=== PATIENT | female | born 1935 | race Caucasian/White ===

== ENCOUNTER → 2016-11-08 | Day surgery (SDC) | payer OTHER ==
[~2016-11-08] MED LIST: ACETAMINOPHEN325 MG PO; ALDACTONE PO; ANTIVERT PO; CARAFATE1 GM PO; CLOBETASOL 0.0560 GM TOP; COLACE PO; COQ-10200 MG PO; DYAZIDE 37.5/251 CAP PO; FERROUS SULFATE PO; FLEXERIL PO; HYDROCODON-ACE1 EAC7 PO; KCL PO; LIPITOR20 MG PO; LORTAB 7.5-5001 TAB PO; MAG-OX 400400 M1 PO; MEVACOR PO; POTASSIUM CHLO20 ME1 PO; PROTONIX PO; TOPROL XL50 MG PO; TRIAMTERENE/HCTZ; VITAMIN B 12 PO; VITAMIN B-121000 MC1 SL; VITAMIN D350000 UNIT PO
--- NOTE | ~2016-11-08 | OR ---
Unit #: [id number] #: [id number] Patient: KUMAR RAMOS [id number] [place], [place] [address] [id number] O MR#: [id number] NAME: KUMAR RAMOS ROOM: Date of Procedure: 11/08/2016 Admission Date: 11/08/2016 Surgeon: Albert Thibodeaux M.D. : 1935 Attending Physician: Albert Thibodeaux M.D. Primary Care Physician: Ryan Dempsey M.D. OPERATIVE REPORT PREOPERATIVE DIAGNOSIS Recurrent chronic upper gastrointestinal bleed. POSTOPERATIVE DIAGNOSES 1. Large hiatal hernia. 2. Healed Neena-Fuentes tear. PROCEDURE PERFORMED Esophagogastroduodenoscopy. ANESTHESIA IV sedation. COMPLICATIONS None. INDICATIONS FOR PROCEDURE The patient is an 81-year-old with a persistent upper GI hemorrhage. 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 She presents with a recurrent bleed approximately 2 weeks ago. DESCRIPTION OF PROCEDURE The patient was taken to the operating theater and placed in left lateral decubitus position. IV sedation was initiated. EGD scope was passed under direct vision into then esophagus. The esophagus was ended in a large hiatal hernia. This seemed of a relatively narrow neck. The stomach was relatively normal. I did not see an AVM and we looked through the stomach multiple times. The duodenum was normal. A biopsy was taken for H pylori. I retroflexed in the scope to identify the large hiatal hernia. I did not see any necrosis. There was an area at the GE junction that appeared to be healed Neena-Fuentes tear. There was no active bleeding. No evidence of recent bleed. She tolerated the procedure well and sent to recovery room in good condition. PLAN Recommend upper GI and we will plan and will consider repair of this large hernia. I feel that she is getting food stuck in this pouch, is unable to eat and then vomits causing the recurrent bleed at the GE junction. Discussed with family. We will follow up as an outpatient. Unit #: [id number] #: [id number] Patient: KUMAR RAMOS Dictated by... Ivonne Sylvester/diego TD: 11/09/2016 02:57 JOB #: [id number] OPERATIVE REPORT X Albert Thibodeaux MD PROCEDURE OPERATIVE NOTE
== END | disposition home or self-care (01) ==
LOC: COPS 10:47
DX: K44.9 Diaphragmatic hernia without obstruction or gangrene (principal); I10 Essential (primary) hypertension; E78.5 Hyperlipidemia, unspecified; Z88.0 Allergy status to penicillin; Z88.6 Allergy status to analgesic agent; Z79.899 Other long term (current) drug therapy; Z98.51 Tubal ligation status; Z90.721 Acquired absence of ovaries, unilateral; Z98.890 Other specified postprocedural states; Z87.440 Personal history of urinary (tract) infections
CPT/HCPCS: 87077

== ENCOUNTER → 2016-11-12 | Outpatient (CLI) | payer OTHER ==
--- NOTE | ~2016-11-12 | CR97 ---
[facility] A Service of [facility] & [facility] RADIOLOGY TEXT RESULTS PATIENT: KUMAR RAMOS LOCATION: [facility] : 35 UNIT #: [id number] AGE: [address]: Albert Thibodeaux MD SEX: F ORDER DR: [id number] [facility] [address] [place], [place] [address] [id number] O MR#: [id number] Acc #: [id number] NAME: KUMAR RAMOS : 1935 SEX: F STUDY DATE/TIME: 11/12/2016 8:51 UNIT: [facility] ROOM: STUDY DESCRIPTION: CR Esophagram Attending Physician: Albert Thibodeaux M.D. Referring Physician: Albert Thibodeaux M.D. Ordering Physician: Albert Thibodeaux M.D. Primary Care Physician: Ryan Dempsey M.D. MEDICAL IMAGING REPORT This report is preliminary unless electronic signature is present EXAM Esophagram INDICATIONS An 81-year-old female with history of paraesophageal hernia. Vomiting. Symptoms for 1-2 years. No comparisons. The fluoro time was 0.5 minutes. 8 images were taken. FINDINGS Study demonstrates a large hiatal hernia over the paraesophageal component. Multiple tertiary contractions are seen within the esophagus. IMPRESSION Large hiatal hernia. Dictated by... Silas Bronson M.D. THIS IS AN ELECTRONICALLY VERIFIED REPORT Silas Bronson M.D. at 11/13/2016 11:31 AM JACOB/vinicio TD: 11/13/2016 00:57 JOB #: [id number] MEDICAL IMAGING REPORT Page 1 of 1 COPY
== END | disposition home or self-care (01) ==
LOC: CRAD 08:06
DX: K44.9 Diaphragmatic hernia without obstruction or gangrene (principal)
CPT/HCPCS: 74220

== ENCOUNTER → 2016-12-03 | Outpatient (CLI) | payer OTHER ==
[2016-12-03 09:46] LABS: HEMATOCRIT 28.5 % (35.0-45.0); HEMOGLOBIN 9.1 gm/dL (12.0-16.0); MEAN CELL VOLUME 88.2 FL (83-96); MEAN CORPUSCULAR HEMOGLOBIN 28.2 PG (28-34); MEAN CORPUSCULAR HGB CONC 31.9 g/dL (30-36); MEAN PLATELET VOLUME 8.5 FL (6.5-11.5); RED BLOOD COUNT 3.24 X10e (3.90-5.30); RED CELL DISTRIBUTION WIDTH 15.3 % (11.0-15.5); WHITE BLOOD COUNT 3.9 X10e3 (4.0-10.5)
[2016-12-03 10:42] LABS: BUN/CREATININE RATIO 15.55; CALCIUM SERUM 9.4 mg/dL (8.4-10.2); CREATININE SERUM 0.9 mg/dL (0.6-1.4); POTASSIUM 3.8 mmol/L (3.5-5.1)
== END | disposition home or self-care (01) ==
LOC: CAMB 07:33
PROVIDERS: Surgery
DX: Z01.812 Encounter for preprocedural laboratory examination (principal); K44.9 Diaphragmatic hernia without obstruction or gangrene; K21.9 Gastro-esophageal reflux disease without esophagitis
CPT/HCPCS: 36415; 80048; 85027

== ENCOUNTER 2016-12-11 09:12 | Observation (INO) | payer OTHER ==
--- NOTE | ~2016-12-11 | EKG ---
PATIENT: KUMAR RAMOS UNIT #: [id number] Ventricular Rate: 63 BPM Atrial Rate: 63 BPM P-R Interval: 122 ms QRS Duration: 66 ms Q-T Interval: 420 ms QTC Calculation(Bezet): 429 ms P [place]: 11 degrees Calculated R [place]: 32 degrees Calculated T [place]: 18 degrees Diagnosis Line: Normal sinus rhythm Diagnosis Line: Normal ECG Diagnosis Line: When compared with ECG of 25-JUL-2012 09:55, Diagnosis Line: Non-specific change in ST segment in Lateral leads Diagnosis Line: Nonspecific T wave abnormality no longer evident Diagnosis Line: in Anterolateral leads Diagnosis Line: Confirmed by HEENA HAGEN MD ([id number]) on 12/11/2016 Diagnosis Line: 10:50:38 PM INTERPRETING MD: XIAO PAULSON
--- NOTE | ~2016-12-11 | OR ---
Unit #: [id number] #: [id number] Patient: KUMAR RAMOS [id number] [place], [place] [address] [id number] I MR#: [id number] NAME: KUMAR RAMOS ROOM: 469 Date of Procedure: 12/11/2016 Admission Date: 12/11/2016 Surgeon: Albert Thibodeaux M.D. : 1935 Attending Physician: Albert Thibodeaux M.D. Primary Care Physician: Ryan Dempsey M.D. OPERATIVE REPORT PREOPERATIVE DIAGNOSIS Paraesophageal hiatal hernia. POSTOPERATIVE DIAGNOSIS Paraesophageal hiatal hernia. PROCEDURE PERFORMED Laparoscopic paraesophageal hiatal hernia repair with Deonte fundoplication. ASSISTANT Salty Alfonso M.D. ANESTHESIA General endotracheal anesthesia. ESTIMATED BLOOD LOSS Minimal. IV FLUIDS 800 crystalloid. COMPLICATIONS None. INDICATIONS FOR PROCEDURE The patient is an 81-year-old lady with a complex paraesophageal hiatal hernia causing nausea, vomiting, and inability to tolerate oral intake. She presents for laparoscopic repair. DESCRIPTION OF PROCEDURE The patient was taken to the operative theater and placed in supine position. General anesthesia was induced. Her abdomen was prepped and draped. A 10-mm Visiport was placed in the left upper quadrant without difficulty. The abdomen was insufflated to 15 mmHg with CO2. Under direct vision, I placed left lower quadrant 5 mm, right upper quadrant 5 mm, and a midline 10 mm. The patient was placed in reverse Trendelenburg. We placed a Imelda liver retractor, exposing the hiatus. The patient was found to have a large paraesophageal hiatal hernia with the majority of her stomach within this. We began by dissecting around the right crura. We dissected out the hernia sac after reducing the hernia contents with Bovie electrocautery as well as the Harmonic Scalpel. We were able Unit #: [id number] #: [id number] Patient: KUMAR RAMOS to reduce the hernia completely. We then created a window at the posterior crura. We took down the short gastrics from the mid fundus proximal using the Harmonic Scalpel. We then repaired the hiatus with 4 interrupted [id number]-ag-bbmwl Ethibond sutures. This formed a snug, but not overly tight repair. There was minimal tension. We then created a wrap by pulling the fundus of the stomach around the posterior esophagus. This was then secured anteriorly with Ethibond sutures with central suture gathering a portion of the anterior esophagus with care taken to avoid the vagus nerve. This created a 2.5 cm length wrap. There were no other abnormalities. We then removed the ports and closed with 4-0 Vicryl. The patient tolerated the procedure well and sent to the recovery room in good condition. Dictated by... Ivonne Sylvester/diego TD: 12/11/2016 23:30 JOB #: [id number] OPERATIVE REPORT Page 1 of 1 X Albert Thibodeaux MD X PROCEDURE OPERATIVE NOTE
[~2016-12-11 09:12] MED LIST changes: -ACETAMINOPHEN325 MG PO; -HYDROCODON-ACE1 EAC7 PO
[2016-12-11 09:46] LABS: BASOPHIL# 0.1 X10e3 (0-0.3); EOSINOPHIL# 0.1 X10e3 (0-0.7); EOSINOPHIL% 1.2 % (0.0-7.0); HEMATOCRIT 32.6 % (35.0-45.0); HEMOGLOBIN 10.5 gm/dL (12.0-16.0); LYMPHOCYTE% 18.8 % (17.0-45.0); MEAN CELL VOLUME 87.8 FL (83-96); MEAN CORPUSCULAR HEMOGLOBIN 28.2 PG (28-34); MEAN CORPUSCULAR HGB CONC 32.2 g/dL (30-36); MEAN PLATELET VOLUME 8.6 FL (6.5-11.5); MONOCYTE# 0.6 X10e3 (0-1.0); MONOCYTE% 10.3 % (3.0-12.0); NEUTROPHIL# 3.7 X10e3 (1.5-7.1); NEUTROPHIL% 68.7 % (40-75); PLATELET COUNT 235 X10e3 (140-420); RED BLOOD COUNT 3.72 X10e (3.90-5.30); RED CELL DISTRIBUTION WIDTH 15.5 % (11.0-15.5); WHITE BLOOD COUNT 5.3 X10e3 (4.0-10.5)
[2016-12-11 09:49] LABS: DIFF IND NO
[2016-12-12 03:15] LABS: HEMATOCRIT 27.2 % (35.0-45.0); HEMOGLOBIN 8.8 gm/dL (12.0-16.0); MEAN CELL VOLUME 87.9 FL (83-96); MEAN CORPUSCULAR HEMOGLOBIN 28.3 PG (28-34); MEAN CORPUSCULAR HGB CONC 32.3 g/dL (30-36); MEAN PLATELET VOLUME 8.5 FL (6.5-11.5); RED BLOOD COUNT 3.09 X10e (3.90-5.30); RED CELL DISTRIBUTION WIDTH 15.1 % (11.0-15.5); WHITE BLOOD COUNT 5.6 X10e3 (4.0-10.5)
[2016-12-12 03:48] LABS: BUN/CREATININE RATIO 8.75; CALCIUM SERUM 8.6 mg/dL (8.4-10.2); CREATININE SERUM 0.8 mg/dL (0.6-1.4); GLOM FILT RATE Estimated 69.2 mL/min (>60); POTASSIUM 3.7 mmol/L (3.5-5.1)
[2016-12-12] MEDS ORDERED: HYDROCODON-ACE1 EAC7 PO (10:29)
[2016-12-12] MEDS ORDERED: ACETAMINOPHEN325 MG PO (10:30)
== END 2016-12-12 11:05 | disposition home or self-care (01) ==
LOC: CSUR 09:12 → CPACUOF 11:32 → C4C 17:05
PROVIDERS: Surgery
DX: K44.9 Diaphragmatic hernia without obstruction or gangrene (principal); K21.9 Gastro-esophageal reflux disease without esophagitis; I10 Essential (primary) hypertension; Z82.49 Family history of ischemic heart disease and other diseases of the circulatory system; Z88.0 Allergy status to penicillin
CPT/HCPCS: 80048; 85025; 85027; 93005; 96365; 96375; 96376; C9113; G0378; J0330; J1644; J2250; J2405; J3010; J3370